=== PATIENT | female | born 1965 | race Caucasian/White ===

== ENCOUNTER → 2017-11-09 | Outpatient (CLI) | payer OTHER, BC ==
[~2017-11-09] MED LIST: GADOBUTROL 7.5 MMOL/7.5 ML VIAL IV ONE
--- NOTE | 2017-11-09 15:58 | RAD ---
MRI Brain with and without contrast History:RIGHT SIDED HEARING LOSS AFTER SEVERE SINUS INFECTIONS 3 MONTHS AGO Technique: Multiplanar, multi sequential pre and postcontrast MR imaging was performed of the brain. Contrast: 7.5 cc Gadavist Comparison: None Findings: There is no evidence of recent infarct or cytotoxic edema. The ventricles, sulci, and cisterns are within normal limits in size and configuration. There is no significant midline shift, intraaxial mass effect, or focal abnormal extra-axial fluid collection. There is no significant signal abnormality of the brain parenchyma. There is no nodular parenchymal or leptomeningeal enhancement. There is preservation of the major intracranial flow-voids at the skull base. The cerebellar tonsils are normal in location. There is no significant abnormality of the pineal gland or pituitary gland. There is negligible patchy ethmoid air cell mucosal thickening, no air-fluid levels of the paranasal sinuses. There is mild to moderate patchy fluid and thickening of the right mastoid air cells, to lesser degree on the left. There is no nodular enhancement of the internal auditory canals or the cerebellopontine angles, mild enhancement of more medial right mastoid air cells. There is nonspecific mild heterogeneity of the marrow of nonexpanded clivus. Impression: 1. There is no significant intracranial abnormality. 2. There is some patchy fluid and thickening of the mastoid air cells greater on the right, also mild nonspecific enhancement more medial right mastoid air cells. Electronically signed by: Geoff Wallace MD (11/09/2017 3:55 PM) [id number]
== END | disposition home or self-care (01) ==
LOC: MRI 13:44
PROVIDERS: ATTEND Otolaryngology
DX: H90.41 Sensorineural hearing loss, unilateral, right ear, with unrestricted hearing on the contralateral side (principal)
CPT/HCPCS: 70553; A9585